=== PATIENT | male | born 2000 | race African-American/Black ===

== ENCOUNTER 2025-03-24 10:24 | Emergency (ER) | payer SELFPAY ==
[2025-03-24] MEDS ORDERED: Acetaminophen 500 MG TAB ONE (11:07)
== END 2025-03-24 12:35 | disposition home or self-care (01) ==
LOC: CSHERS 10:24
DX: J02.9 Acute pharyngitis, unspecified (principal); R04.0 Epistaxis
CPT/HCPCS: 87081; 87428; 87430; 99284